=== PATIENT | female | born 1965 | race Caucasian/White ===

== ENCOUNTER 2022-06-06 12:27 | Emergency (ER) | payer MEDICARE, MEDICAID ==
[~2022-06-06] VITALS: Ht 170.2 cm; Wt 112.4 kg
[~2022-06-06 12:27] MED LIST: ASPIRIN ADULT L81 M2 PO; BUPROPN HCL150 MG PO; CLOPIDOGREL75 MG PO; CRESTOR40 MG PO; FAMOTIDINE20 M3 PO; JARDIANCE10 MG PO; LEVEMIR FL100 UNIT/M SC; LISINOP/HCTZ1 TA1 PO; LOPRESSOR25 M1 PO; NORVASC PO; NOVOLOG FL100 UNIT/M SC; OLANZAPINE5 MG PO; OMEPRAZOLE DR20 MG PO; PAROXETINE40 M1 PO; RYBELSUS7 MG PO
[2022-06-06 14:25] VITALS: BP 143/107
[2022-06-06 14:31] VITALS: BP 155/102
[2022-06-06] MEDS ORDERED: MEDDOSEPAK PO (14:31)
[2022-06-06 14:46] VITALS: BP 159/113
== END 2022-06-06 14:54 | disposition home or self-care (01) ==
LOC: ED 12:27
PROC: 2W3CX1Z Immobilization of Right Lower Arm using Splint (ICD-10-PCS; principal; 2022-06-06)
DX: M25.541 Pain in joints of right hand (principal); E11.9 Type 2 diabetes mellitus without complications; I10 Essential (primary) hypertension; E78.00 Pure hypercholesterolemia, unspecified; Z79.4 Long term (current) use of insulin; F17.200 Nicotine dependence, unspecified, uncomplicated

== ENCOUNTER 2022-07-01 11:19 | Observation (INO) | payer MEDICARE, MEDICAID ==
[2022-07-01] VITALS (17 sets, daily range): BP systolic 113–157; BP diastolic 76–116
[~2022-07-01] VITALS: Ht 170.2 cm; Wt 122.0 kg
[~2022-07-01 11:19] MED LIST changes: +MEDDOSEPAK PO
[2022-07-01 11:48] LABS: BASO% 0.5 % (0-3); EOS% 1.4 % (0-8); HEMATOCRIT 50.8 % (37.0-47.0); HEMOGLOBIN 16.2 g/dl (12.0-16.0); IMMATURE GRANULOCYTES 0.5 % (0.0-5.0); LYMPH% 36.6 % (15-41); MEAN CELL VOLUME 89.9 fL CALC (80.0-100.0); MEAN CORPUSCULAR HGB 28.7 pG CALC (26.0-32.0); MEAN CORPUSCULAR HGB CONC 31.9 g/dL CAL (32.0-36.0); NEUT# 6.53 thou/uL (2.00-7.15); RED BLOOD COUNT 5.65 mill/uL (4.20-5.60); RED CELL DISTRI WIDTH 12.9 % (11.5-15.5)
[2022-07-01 12:06] LABS: ALBUMIN 3.9 g/dL (3.2-5.0); ALKALINE PHOSPHATASE 127 u/l (38-126); ANION GAP 13 (6-22 (CALC)); BILIRUBIN, TOTAL 0.4 mg/dL (0.02-1.3); BUN 17 mg/dL (7-17); BUN/CREATININE RATIO 24 (12-20 (CALC)); CARBON DIOXIDE 24 mmol/l (22-30); CHLORIDE 100 mmol/l (95-108); CREATININE 0.7 mg/dL (0.5-1.0); GFR FOR AFR.AMER. > 60 ML/MIN (>=60 (CALC)); GFR OTHER RACES > 60 ML/MIN (>=60 (CALC)); POTASSIUM 4.4 mmol/l (3.5-5.1); SGOT/AST 55 u/l (14-36); SODIUM 132 mmol/l (137-146); TOTAL PROTEIN 7.3 g/dL (6.3-8.2)
[2022-07-02 00:09] VITALS: BP 120/72
[2022-07-02 01:58] LABS: BASO% 0.3 % (0-3); EOS% 1.9 % (0-8); HEMOGLOBIN 14.9 g/dl (12.0-16.0); IMMATURE GRANULOCYTES 0.5 % (0.0-5.0); LYMPH% 41.2 % (15-41); MEAN CELL VOLUME 90.4 fL CALC (80.0-100.0); MEAN CORPUSCULAR HGB 29.3 pG CALC (26.0-32.0); MEAN CORPUSCULAR HGB CONC 32.4 g/dL CAL (32.0-36.0); MONO% 7.2 % (2-13); NEUT# 5.69 thou/uL (2.00-7.15); NEUT% 48.9 % (42-76); RED BLOOD COUNT 5.09 mill/uL (4.20-5.60); RED CELL DISTRI WIDTH 12.9 % (11.5-15.5)
[2022-07-02 02:14] LABS: ALKALINE PHOSPHATASE 147 u/l (38-126); BUN 20 mg/dL (7-17); BUN/CREATININE RATIO 21 (12-20 (CALC)); CHLORIDE 102 mmol/l (95-108); CHOLESTEROL HDL RATIO 7.4 (<4.4 (CALC)); GFR FOR AFR.AMER. > 60 ML/MIN (>=60 (CALC)); GFR OTHER RACES 58 ML/MIN (>=60 (CALC)); HDL CHOLESTEROL 33 mg/dL (39.0-59.0); MAGNESIUM 1.4 mg/dL (1.6-2.3); SGOT/AST 51 u/l (14-36); SODIUM 136 mmol/l (137-146); TOTAL CHOLESTEROL 243 mg/dl (0-199); TOTAL PROTEIN 5.9 g/dL (6.3-8.2)
[2022-07-02 02:22] LABS: VLDL CHOLESTROL 237 mg/dl (2-49 (CALC))
[2022-07-02 02:24] LABS: ALBUMIN 3.1 g/dL (3.2-5.0); ANION GAP 9 (6-22 (CALC)); BILIRUBIN, TOTAL 0.2 mg/dL (0.02-1.3); CARBON DIOXIDE 29 mmol/l (22-30); TOTAL TRIGLYCERIDES 1186 mg/dl (0-149)
[2022-07-02 05:02] VITALS: BP 150/87
[2022-07-02 07:20] VITALS: BP 159/101
[2022-07-02 10:32] VITALS: BP 134/90
[2022-07-02 11:33] VITALS: BP 134/90
[2022-07-02] MEDS ORDERED: LEVEMIR100 UNIT SC (11:59)
== END 2022-07-02 13:27 | disposition home or self-care (01) ==
LOC: ED 11:19 → ED-I 12:45 → ED 13:07 → MS2 13:08
PROVIDERS: Nurse Practitioner; ADMIT Internal Medicine; ATTEND Internal Medicine
DX: R07.9 Chest pain, unspecified (principal); I10 Essential (primary) hypertension; E11.65 Type 2 diabetes mellitus with hyperglycemia; I25.10 Atherosclerotic heart disease of native coronary artery without angina pectoris; J44.9 Chronic obstructive pulmonary disease, unspecified; E03.9 Hypothyroidism, unspecified; E78.00 Pure hypercholesterolemia, unspecified; F17.200 Nicotine dependence, unspecified, uncomplicated; T38.3X6A Underdosing of insulin and oral hypoglycemic [antidiabetic] drugs, initial encounter; Z91.128 Patient's intentional underdosing of medication regimen for other reason; Z95.5 Presence of coronary angioplasty implant and graft; Z79.4 Long term (current) use of insulin; Z79.84 Long term (current) use of oral hypoglycemic drugs
CPT/HCPCS: J1650; J2060; J3475

== ENCOUNTER 2022-08-06 08:50 | Day surgery (SDC) | payer MEDICARE, MEDICAID ==
[~2022-08-06] VITALS: Ht 170.2 cm; Wt 108.9 kg
[~2022-08-06 08:50] MED LIST changes: +ALBUTEROL SUL1.25 MG; +ALBUTEROL/ IN; +FENOFIBRATE145 MG PO; +LEVEMIR100 UNIT SC; +LEVOTHYROXIN25 MC1 PO; +NAPROXEN EC500 MG PO; +OMEPRAZOLE20 MG PO
[2022-08-06 13:36] VITALS: BP 147/91
== END 2022-08-06 12:45 | disposition home or self-care (01) ==
LOC: ENDO 08:50 → ORM 09:30 → ENDO 12:45
PROVIDERS: ATTEND Surgery
PROC: 0DB78ZX Excision of Stomach, Pylorus, Via Natural or Artificial Opening Endoscopic, Diagnostic (ICD-10-PCS; principal; 2022-08-06)
PROC: 0DJD8ZZ Inspection of Lower Intestinal Tract, Via Natural or Artificial Opening Endoscopic (ICD-10-PCS; 2022-08-06)
DX: K29.70 Gastritis, unspecified, without bleeding (principal); K92.1 Melena; K31.9 Disease of stomach and duodenum, unspecified; K64.8 Other hemorrhoids; K21.9 Gastro-esophageal reflux disease without esophagitis; K64.4 Residual hemorrhoidal skin tags; I10 Essential (primary) hypertension; E11.9 Type 2 diabetes mellitus without complications; J44.9 Chronic obstructive pulmonary disease, unspecified; F41.9 Anxiety disorder, unspecified; F31.9 Bipolar disorder, unspecified; F17.200 Nicotine dependence, unspecified, uncomplicated; R19.02 Left upper quadrant abdominal swelling, mass and lump; Z79.4 Long term (current) use of insulin; Z79.84 Long term (current) use of oral hypoglycemic drugs
CPT/HCPCS: J0690